=== PATIENT | female | born 1955 | race Caucasian/White ===

== ENCOUNTER 2019-11-07 17:18 | Emergency (ER) | payer MEDICARE, MEDICAID, SELFPAY ==
--- NOTE | 2019-11-07 17:39 | DI.RAD.S_ITS ---
PROCEDURE: XR WRIST LT MIN 3V INDICATIONS: left wrist swelling and pain TECHNIQUE: 4 views of the wrist were acquired. COMPARISON: None. FINDINGS: Bones: No acute fractures or dislocations. No suspicious bony lesions. Chronic appearing ulnar fracture. Mild periarticular osteophyte formation at the radiocarpal, scaphotrapezial, and 1st metacarpal joints. Scaphoid view: Negative Soft tissues: Calcification within the soft tissues at the medial ulnocarpal interfaces. IMPRESSION: Osteoarthritis. No acute fracture. No osseous lesion. If symptoms and/or clinical suspicion for pathology persist, further assessment with repeat, or advanced imaging (e.g., CT, MRI, or bone scan) may be helpful for further assessment. Dictated by: Spencer Huddleston M.D. on 11/07/2019 at 17:59 Approved by: Spencer Huddleston M.D. on 11/07/2019 at 18:01
[2019-11-07 17:40] VITALS: BP 183/79; PULSE 108; RESP 18; TEMP 37; O2SAT 96; BMI 17.8
--- NOTE | 2019-11-07 17:43 | ED.SKABFB ---
HPI - Skin/Abscess/Foreign Bdy <EMILIE SahaBC - Last Filed: 11/07/19 19:17> General Chief complaint: Skin/Abscess/Foreign Body Stated complaint: left wrist swelling and pain, woke up like that Time Seen by Provider: 11/07/19 17:32 Source: patient and family Mode of arrival: Family Vehicle Limitations: no limitations History of Present Illness HPI narrative: The patient is a 64-year-old female current smoker with history of hypertension, emphysema who presents with a chief complaint of left wrist pain and swelling. She states she woke up like this with redness and pain on the lateral aspect of her left wrist. She took some ibuprofen better, but it did not help. She denies any fevers nausea vomiting or diarrhea. She states she can move her wrist, but it hurts to do so. She denies any history of gout. She saw her PCP, Dr. Forman who referred her to this department for further workup. She denies any falls or trauma. She states that she had a a right hip ORIF several months ago. 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 Related Data Home Medications Medication Instructions Recorded Confirmed albuterol sulfate 90 mcg INHALATION PRN PRN 11/07/19 11/07/19 amlodipine 5 mg PO DAILY 11/07/19 11/07/19 hydrochlorothiazide 25 mg PO DAILY 11/07/19 11/07/19 Previous Rx's Medication Instructions Recorded cephalexin 500 mg PO QID 10 Days #40 cap 11/07/19 doxycycline hyclate 100 mg PO BID #14 cap 11/07/19 hydrocodone-acetaminophen 1 tab PO Q4-6H PRN #5 tab 11/07/19 Allergies Allergy/AdvReac Type Severity Reaction Status Date / Time codeine Allergy Unknown Verified 11/07/19 17:42 Review of Systems <EMILIE SahaBC - Last Filed: 11/07/19 19:17> Review of Systems Narrative: GENERAL: Denies chills, fatigue, malaise, fever, sweats. HEENT: Denies sinus pain, ear pain, sore throat, difficulty swallowing, dizziness. RESPIRATORY: Denies dyspnea, cough, wheezing, hemoptysis, sputum. CARDIOVASCULAR: Denies chest pain, palpitations, orthopnea, edema, GASTROINTESTINAL: Denies nausea, vomiting, abdominal pain, diarrhea, constipation, melena. : Denies dysuria, frequency, incontinence, hematuria, urinary retention. MUSCULOSKELETAL: See HPI SKIN: See HPI NEUROLOGIC: Denies weakness, headache, numbness, change in speech, confusion, seizures, incoordination. PSYCHIATRIC: No concerning psychosocial issues. 12 point review of systems is negative except for those stated above Patient History <EMILIE Saha - Last Filed: 11/07/19 19:17> Social History Smoking Status: Current every day smoker Smoking Status: Current every day smoker tobacco type: cigarettes alcohol intake frequency: other Substance Use Type: does not use Exam <EMILIE Saha - Last Filed: 11/07/19 19:17> Narrative Exam Narrative: GENERAL: Elderly female in no acute distress HEAD: Atraumatic. Normocephalic. No temporal or scalp tenderness. EYES: Pupils equal round and reactive. Extraocular motions intact. No scleral icterus. No injection or drainage. ENT: Nose without bleeding, purulent drainage or septal hematoma. Throat without erythema, tonsillar hypertrophy or exudate. Uvula midline. Airway patent. NECK: Trachea midline. No JVD or lymphadenopathy. Supple, nontender, no meningeal signs. CARDIOVASCULAR: Regular rate and rhythm RESPIRATORY: Occasional cough. No increased respiratory effort. No accessory muscle use. EXTREMITIES: Skin exam as noted. Decreased range of motion noted left wrist all maurer. However able to flex and extend pronate supinate. Positive right radial pulse. Capillary refill less than 2 seconds all fingers left hand BACK: Nontender without deformity or crepitance. No flank tenderness. NEURO: AOx3. SKIN: 6 x 4 cm of erythema and warmth noted on lateral aspect of left wrist no palpable fluctuance or abscess. Initial Vital Signs Initial Vital Signs: Vital Signs Temperature 98.6 F 11/07/19 17:40 Pulse Rate 108 H 11/07/19 17:40 Respiratory Rate 18 11/07/19 17:40 Blood Pressure 183/79 H 11/07/19 17:40 Pulse Oximetry 96 11/07/19 17:40 <Maxx Ross MD - Last Filed: 11/08/19 07:20> Initial Vital Signs Initial Vital Signs: Vital Signs Temperature 98.6 F 11/07/19 17:40 Pulse Rate 108 H 11/07/19 17:40 Respiratory Rate 18 11/07/19 17:40 Blood Pressure 183/79 H 11/07/19 17:40 Pulse Oximetry 96 11/07/19 17:40 Scores <GINA Saha - Last Filed: 11/07/19 19:17> GCS [place] coma scale eye opening: Spontaneous Joey coma scale verbal response: Orientated Joey coma scale motor response: Obey commands [place] coma scale total score: 15 Course <GINA Saha - Last Filed: 11/07/19 19:17> Orders Ordered: Discontinued Medications Hydrocodone Bitart/Acetaminophen ([place] 5/325) 1 tab PO NOW ONE Stop: 11/07/19 17:42 Last Admin: 11/07/19 18:16 Dose: 1 tab Documented by: SANDRA Cephalexin HCl (Keflex) 500 mg PO NOW ONE Stop: 11/07/19 19:05 Last Admin: 11/07/19 19:15 Dose: 500 mg Documented by: SANDRA Doxycycline Hyclate (Vibramycin) 100 mg PO NOW ONE Stop: 11/07/19 19:05 Last Admin: 11/07/19 19:15 Dose: 100 mg Documented by: SANDRA Vital Signs Vital signs: Vital Signs - 8 hr 11/07/19 17:40 11/07/19 18:18 Temperature 98.6 F Pulse Rate 108 H 87 Respiratory Rate 18 18 Blood Pressure 183/79 H Blood Pressure [Right Arm] 130/61 Pulse Oximetry 96 96 <Maxx Ross MD - Last Filed: 11/08/19 07:20> Orders Ordered: Discontinued Medications Hydrocodone Bitart/Acetaminophen ([place] 5/325) 1 tab PO NOW ONE Stop: 11/07/19 17:42 Last Admin: 11/07/19 18:16 Dose: 1 tab Documented by: JABARIE Cephalexin HCl (Keflex) 500 mg PO NOW ONE Stop: 11/07/19 19:05 Last Admin: 11/07/19 19:15 Dose: 500 mg Documented by: SANDRA Doxycycline Hyclate (Vibramycin) 100 mg PO NOW ONE Stop: 11/07/19 19:05 Last Admin: 11/07/19 19:15 Dose: 100 mg Documented by: SANDRA Vital Signs Vital signs: Vital Signs - 8 hr 11/07/19 17:40 11/07/19 18:18 Temperature 98.6 F Pulse Rate 108 H 87 Respiratory Rate 18 18 Blood Pressure 183/79 H Blood Pressure [Right Arm] 130/61 Pulse Oximetry 96 96 MDM - Skin/Abscess/Foreign Bdy <Zaria Sweeneymer, [employer]-BC - Last Filed: 11/07/19 19:17> Lab Data Result diagrams: 11/07/19 18:24 11/07/19 18:24 Labs: Lab Results 11/07/19 11/07/19 11/07/19 Range/Units 18:24 18:24 18:24 WBC 8.4 (4.5-11.0) X10^3/uL RBC 4.09 (4.0-5.2) X10^6/uL Hgb 12.8 (12.0-16.0) g/dL Hct 37.7 (36-46) % MCV 92.3 (80-100) fL MCH 31.4 (26-34) PG MCHC 34.0 (30-36) % RDW 13.7 (11.6-14.8) % Plt Count 194 (150-400) X10^3/uL Neut % (Auto) 68.0 (50-75) % Lymph % (Auto) 20.3 L (25-40) % Falls % (Auto) 9.3 (3-14) % Eos % (Auto) 1.7 L (2-4) % Baso % (Auto) 0.7 (0-2) % Neut # (Auto) 5700 (6530-8528) /uL Lymph # (Auto) 1700 (7905-4030) /uL Falls # (Auto) 800 (0-900) /uL Eos # (Auto) 100 (0-450) /uL Baso # (Auto) 100 (0-100) /uL Sodium 139 (137-145) mmol/L Potassium 3.5 (3.4-5.1) mmol/L Chloride 101 (98-107) mmol/L Carbon Dioxide 31 (22-32) mmol/L BUN 17 (7-17) mg/dL Creatinine 0.59 (0.52-1.04) mg/dL Estimated GFR > 60.0 (>60) mL/min BUN/Creatinine Ratio 28.8 H (6-22) Glucose 122 H (80-110) mg/dL Uric Acid 4.6 (2.5-6.2) mg/dL Calcium 9.8 (8.4-10.2) mg/dL Total Bilirubin 0.5 (0.2-1.3) mg/dL AST 20 (14-36) IU/L ALT 15 (<35) IU/L Alkaline Phosphatase 65 (38-126) U/L Total Protein 7.7 (6.3-8.2) g/dL Albumin 4.4 (3.5-5.0) g/dL Globulin 3.3 (1.7-4.1) g/dL Albumin/Globulin Ratio 1.3 (1.0-2.8) Procalcitonin < 0.05 (<0.5) ng/mL Imaging Data Extremity x-ray #1: Radiologist's Impression: [address] [place] [id number] XRay Report Signed Patient: Neha Montalvo R#: [id number] : 5Acct:[id number] Age/Sex: 64 / FDate of Service: 11/07/19 Loc: ED Accession Number: [id number] Procedure: XR wrist LT min 3V Ordering Provider: Zaria Herrera [employer]- PROCEDURE: XR WRIST LT MIN 3V INDICATIONS: left wrist swelling and pain TECHNIQUE: 4 views of the wrist were acquired. COMPARISON: None. FINDINGS: Bones: No acute fractures or dislocations. No suspicious bony lesions. Chronic appearing ulnar fracture. Mild periarticular osteophyte formation at the radiocarpal, scaphotrapezial, and 1st metacarpal joints. Scaphoid view: Negative Soft tissues: Calcification within the soft tissues at the medial ulnocarpal interfaces. IMPRESSION: Osteoarthritis. No acute fracture. No osseous lesion. If symptoms and/or clinical suspicion for pathology persist, further assessment with repeat, or advanced imaging (e.g., CT, MRI, or bone scan) may be helpful for further assessment. Dictated by: Spencer Huddleston M.D. on 11/07/2019 at 17:59 Approved by: Spencer Huddleston M.D. on 11/07/2019 at 18:01 [facility] Narrative Medical decision making narrative: The patient is a 64-year-old female who who presents with a chief complaint of sudden left wrist pain and swelling. She denies any falls or trauma. She saw her primary care provider who sent her to the emergency department. Labs are reassuring, no elevated procalcitonin, no leukocytosis. This combined with noted range of motion helps rule out septic joint. Uric acid within normal limits as well as location helps rule out initial gout outbreak. At this point I will treat her for cellulitis. Patient does have a remote history of MRSA, so will cover for MRSA with doxycycline. Also placed on Keflex. Small prescription [place] given. Discussed at length the importance of following up with primary care provider as well as monitoring for signs of systemic infection such as fever, no hip down fluids etcetera. Discussed follow-up with worsening or no improvement. Discussed come back to ER for acute concerns. Patient has no questions or concerns upon discharge and states understanding of return precautions as well as follow-up care. She was discharged home with her daughter. <Maxx Ross MD - Last Filed: 11/08/19 07:20> Lab Data Labs: Lab Results 11/07/19 11/07/19 11/07/19 Range/Units 18:24 18:24 18:24 WBC 8.4 (4.5-11.0) X10^3/uL RBC 4.09 (4.0-5.2) X10^6/uL Hgb 12.8 (12.0-16.0) g/dL Hct 37.7 (36-46) % MCV 92.3 (80-100) fL MCH 31.4 (26-34) PG MCHC 34.0 (30-36) % RDW 13.7 (11.6-14.8) % Plt Count 194 (150-400) X10^3/uL Neut % (Auto) 68.0 (50-75) % Lymph % (Auto) 20.3 L (25-40) % Falls % (Auto) 9.3 (3-14) % Eos % (Auto) 1.7 L (2-4) % Baso % (Auto) 0.7 (0-2) % Neut # (Auto) 5700 (5172-7333) /uL Lymph # (Auto) 1700 (6955-5659) /uL Falls # (Auto) 800 (0-900) /uL Eos # (Auto) 100 (0-450) /uL Baso # (Auto) 100 (0-100) /uL Sodium 139 (137-145) mmol/L Potassium 3.5 (3.4-5.1) mmol/L Chloride 101 (98-107) mmol/L Carbon Dioxide 31 (22-32) mmol/L BUN 17 (7-17) mg/dL Creatinine 0.59 (0.52-1.04) mg/dL Estimated GFR > 60.0 (>60) mL/min BUN/Creatinine Ratio 28.8 H (6-22) Glucose 122 H (80-110) mg/dL Uric Acid 4.6 (2.5-6.2) mg/dL Calcium 9.8 (8.4-10.2) mg/dL Total Bilirubin 0.5 (0.2-1.3) mg/dL AST 20 (14-36) IU/L ALT 15 (<35) IU/L Alkaline Phosphatase 65 (38-126) U/L Total Protein 7.7 (6.3-8.2) g/dL Albumin 4.4 (3.5-5.0) g/dL Globulin 3.3 (1.7-4.1) g/dL Albumin/Globulin Ratio 1.3 (1.0-2.8) Procalcitonin < 0.05 (<0.5) ng/mL Discharge Plan Departure Patient Disposition: Home Clinical Impression: Cellulitis Qualifiers: Site of cellulitis: extremity Site of cellulitis of extremity: upper extremity Laterality: left Qualified Code(s): L03.114 - Cellulitis of left upper limb Discharge Date/Time: 11/07/19 19:33 Instructions: DI for Cellulitis -- Adult Activity Restrictions/Additional Instructions: Thank you for trusting us with your care today As I discussed, your lab work was very reassuring with normal uric acid and no elevated white blood cell count We have elected to treat you for a skin infection called cellulitis. I sent prescriptions of 2 different antibiotics to [facility]. I also sent a small prescription of pain medicine Please follow-up with primary care provider in the next few days. Please come back to the emergency department for any acute concerns such as those I discussed including fever, inability keep down fluids or any acute concerns Prescriptions: New cephalexin 500 mg capsule 500 mg PO QID 10 Days Qty: 40 RF: 0 doxycycline hyclate 100 mg capsule 100 mg PO BID Qty: 14 RF: 0 hydrocodone-acetaminophen 5-325 mg tablet 1 tab PO Q4-6H PRN (Reason: pain) Qty: 5 RF: 0 No Action albuterol sulfate 90 mcg/actuation HFA aerosol inhaler 90 mcg INHALATION PRN PRN (Reason: Bronchospasm) RF: 0 amlodipine 5 mg tablet 5 mg PO DAILY RF: 0 hydrochlorothiazide 25 mg tablet 25 mg PO DAILY RF: 0 Referrals: Miguel Forman [Non-Staff] -
--- NOTE | 2019-11-07 17:47 | PC.NURSE ---
good radial pulses in left wrist.
[2019-11-07] MEDS: HYDROCODONE/ACET 5/325 TABLET 1 TAB PO (18:16)
[2019-11-07 18:18] VITALS: BP 130/61; PULSE 87; RESP 18; O2SAT 96
[2019-11-07 18:36] LABS: Add Manual Diff / Slide Review NO; Basophils Absolute Auto 100 /uL (0-100); Basophils Percent Auto 0.7 % (0-2); Eosinophils Absolute Auto 100 /uL (0-450); Eosinophils Percent Auto 1.7 % (2-4); Hematocrit 37.7 % (36-46); Hemoglobin 12.8 g/dL (12.0-16.0); Lymphocytes Absolute Auto 1700 /uL (1100-4500); Lymphocytes Percent Auto 20.3 % (25-40); Mean Corpuscular Hemoglobin 31.4 PG (26-34); Mean Corpuscular Volume 92.3 fL (80-100); Monocytes Absolute Auto 800 /uL (0-900); Monocytes Percent Auto 9.3 % (3-14); Neutrophils Absolute Auto 5700 /uL (1500-7000); Red Blood Cell Count 4.09 X10^6/uL (4.0-5.2); Red Cell Distribution Width 13.7 % (11.6-14.8); White Blood Cell Count 8.4 X10^3/uL (4.5-11.0)
[2019-11-07 18:44] LABS: Alanine Aminotransferase 15 IU/L (<35); Albumin 4.4 g/dL (3.5-5.0); Albumin Globulin Ratio 1.3 (1.0-2.8); Alkaline Phosphatase 65 U/L (38-126); Aspartate Aminotransferase 20 IU/L (14-36); BUN Creatinine Ratio 28.8 (6-22); Bilirubin Total 0.5 mg/dL (0.2-1.3); Blood Urea Nitrogen 17 mg/dL (7-17); Calcium 9.8 mg/dL (8.4-10.2); Carbon Dioxide 31 mmol/L (22-32); Chloride 101 mmol/L (98-107); Estimated Glomerular Filt Rate > 60.0 mL/min (>60); Globulin 3.3 g/dL (1.7-4.1); Glucose 122 mg/dL (80-110); HEMOLYSIS < 15 (0-50); Potassium 3.5 mmol/L (3.4-5.1); Sodium 139 mmol/L (137-145); Total Protein 7.7 g/dL (6.3-8.2); Uric Acid 4.6 mg/dL (2.5-6.2)
[2019-11-07 18:53] LABS: Platelet Count 194 X10^3/uL (150-400)
[2019-11-07 19:04] LABS: Procalcitonin < 0.05 ng/mL (<0.5)
[2019-11-07] MEDS: DOXYCYCLINE HYCLATE 100 MG TABLET PO (19:15)
[2019-11-07] MEDS: cephALEXin 250 MG CAPSULE 500 MG PO (19:15)
[2019-11-07 19:21] VITALS: BP 132/64; PULSE 82; RESP 17; O2SAT 98
[2019-11-07 19:31] VITALS: BP 132/64; PULSE 84; RESP 16; O2SAT 96
== END 2019-11-07 19:33 | disposition home or self-care (01) ==
PROVIDERS: Emergency Provider Nurse Practitioner Family
DX: L03.114 Cellulitis of left upper limb (principal)
CPT/HCPCS: 36415; 73110; 80053; 84145; 84550; 85025; 99283; 99284

== ENCOUNTER → 2019-12-30 14:08 | Outpatient (CLI) | payer MEDICARE, MEDICAID, SELFPAY ==
--- NOTE | 2019-12-30 | DI.CT.S_ITS ---
PROCEDURE: CT LE RT WO CON INDICATIONS: RIGHT HIP FRACTURE TECHNIQUE: Noncontrast 3 mm axial sections acquired through the bony pelvis. Additional 3 mm axial sections acquired through the symptomatic hip joint, with coronal and sagittal reformats. COMPARISON: , CR, XR PELVIS WITH LATERAL HIP RIGHT, 12/03/2019, 16:00. FINDINGS: Image quality: Excellent. Bones: Diffuse osteopenia. Postsurgical changes related to intramedullary vaughn and screw fixation of the proximal right femur. There is unchanged alignment. The hardware appears intact. No evidence of hardware loosening. Persistent fracture lucency is noted with sclerotic appearance to the margins, coronal image 50/6. Mild bilateral hip osteoarthritis. Lower lumbar spondylosis. Alignment at the sacroiliac joints and pubis symphysis within normal limits. Colonic diverticulosis is seen without evidence of acute complication. Scattered vascular calcifications seen throughout the aorta. Large amount of stool is noted. Otherwise, intrapelvic contents without acute abnormality. IMPRESSION: Status post vaughn and screw fixation of the proximal right femur in unchanged alignment. Hardware appears intact. Chronic degenerative and incidental findings as above Dictated by: Heath Suresh M.D. on 12/30/2019 at 16:12 Approved by: Heath Suresh M.D. on 12/30/2019 at 16:18
== END ==
PROVIDERS: PCP Family Medicine; Referring Provider Orthopaedic Surgery; Visit Provider Orthopaedic Surgery
DX: S72.091A Other fracture of head and neck of right femur, initial encounter for closed fracture (principal); M16.0 Bilateral primary osteoarthritis of hip; M85.88 Other specified disorders of bone density and structure, other site; M47.816 Spondylosis without myelopathy or radiculopathy, lumbar region; I70.0 Atherosclerosis of aorta; K57.90 Diverticulosis of intestine, part unspecified, without perforation or abscess without bleeding; X58.XXXA Exposure to other specified factors, initial encounter
CPT/HCPCS: 73700

== ENCOUNTER → 2023-08-10 12:13 | Outpatient (CLI) | payer MEDICARE, MEDICAID, SELFPAY ==
--- NOTE | 2023-08-10 12:17 | DI.US.S_ITS ---
LIMITED ULTRASOUND OF RIGHT BREAST AND AXILLA: 08/10/2023 CLINICAL: Patient returns today to evaluate a focal asymmetry in the right breast. Comparison is made to exams dated: 08/10/2023 mammogram - [facility], 02/08/2023 mammogram - Outside facility, and 07/28/2011 mammogram - [facility]. Color flow and real-time ultrasound of the right breast 11 o'clock, and axilla regions were performed on the areas of interest. Quezada scale images of the real-time examination were reviewed. There is a 0.6 cm x 0.6 cm x 1 cm mass in the right axillary tail. This mass is hypoechoic with posterior acoustic shadowing. This correlates with mammography findings. The right axilla was interogated and normal appearing lymph nodes are visualized. IMPRESSION: SUSPICIOUS OF MALIGNANCY No right axillary adenopathy. The 0.6 cm x 0.6 cm x 1 cm mass is at a moderate suspicion for malignancy. An ultrasound guided biopsy is recommended. This exam was interpreted at Station ID: [id number]. SUMMARY: This was discussed with the patient by the radiologist at the time of the exam. Electronically Signed By: Cecilia devlin/:08/10/2023 14:16:51 letter sent: Biopsy Required Ultrasound BI-RADS: 4b Moderate suspicion of malignancy
--- NOTE | 2023-08-10 12:17 | DI.MG.S_ITS ---
UNILATERAL RIGHT DIGITAL DIAGNOSTIC MAMMOGRAM 3D/2D WITH ADDITIONAL VIEWS: 08/10/2023 CLINICAL: Additional evaluation requested from prior study. Comparison is made to exams dated: 07/28/2011 mammogram - [facility] and 02/08/2023 mammogram - Outside facility. The right breast is heterogeneously dense, which may obscure small masses (category c / 51-75% glandular tissue). There is a focal asymmetry in the right breast at 11 o'clock posterior depth. This is seen in additional views. No other significant masses or calcifications are seen in the breast. IMPRESSION: INCOMPLETE: NEEDS ADDITIONAL IMAGING EVALUATION The focal asymmetry in the right breast is indeterminate. A targeted ultrasound of the right breast is recommended and will be performed immediately following this exam. Based on the Tyrer Cuzick model (a risk assessment model) the patient's lifetime risk is 6.3% and her 10 year risk is 3.5%. According to the ACR, ACS, and NCCN guidelines, an annual breast MRI exam along with mammogram is recommended if the patient's lifetime risk is 20% or greater. This exam was interpreted at Station ID: [id number]. NOTE: For mammograms, a report in lay terms will be sent to the patient. Approximately 15% of breast malignancies will not be visualized mammographically. In the management of a palpable breast mass, a negative mammogram must not discourage biopsy of a clinically suspicious lesion. Electronically Signed By: Cecilia Dunn M.D. lk/:08/10/2023 14:12:45 ACR BI-RADS Category 0: Incomplete [id number]
== END ==
PROVIDERS: PCP Family Medicine; Referring Provider Family Medicine; Visit Provider Family Medicine
DX: R92.8 Other abnormal and inconclusive findings on diagnostic imaging of breast (principal); N64.89 Other specified disorders of breast; N63.31 Unspecified lump in axillary tail of the right breast
CPT/HCPCS: 76642; 77065; G0279

== ENCOUNTER → 2023-08-10 12:21 | Outpatient (CLI) | payer MEDICARE, MEDICAID, OTHER, SELFPAY | PROVIDERS: PCP Family Medicine; Referring Provider Family Medicine; Visit Provider Family Medicine | DX: J44.9 Chronic obstructive pulmonary disease, unspecified (principal); F17.210 Nicotine dependence, cigarettes, uncomplicated; R92.8 Other abnormal and inconclusive findings on diagnostic imaging of breast; N64.89 Other specified disorders of breast; N63.31 Unspecified lump in axillary tail of the right breast | CPT/HCPCS: 76642; 77065; 94060; 94726; 94729; G0279 ==

== ENCOUNTER → 2023-08-28 | Outpatient (CLI) | payer MEDICARE, MEDICAID, SELFPAY ==
--- NOTE | 2023-08-28 | DI.MG.S_ITS ---
UNILATERAL RIGHT DIGITAL DIAGNOSTIC MAMMOGRAM 3D/2D POST-PROCEDURE IMAGING FOR MARKER PLACEMENT: 08/28/2023 CLINICAL: Post Clip. Comparison is made to exams dated: 08/10/2023 ultrasound, 08/10/2023 mammogram - [facility], and 02/08/2023 mammogram - Outside facility. The right breast is heterogeneously dense, which may obscure small masses (category c / 51-75% glandular tissue). There is a marker clip in the appropriate position in the right breast at 9 o'clock posterior depth. This marker clip placement is at the biopsy site. IMPRESSION: POST PROCEDURE MAMMOGRAM FOR MARKER PLACEMENT There was a successful marker clip placement in the right breast posterior depth. Based on the Tyrer Cuzick model (a risk assessment model) the patient's lifetime risk is 6.3% and her 10 year risk is 3.5%. According to the ACR, ACS, and NCCN guidelines, an annual breast MRI exam along with mammogram is recommended if the patient's lifetime risk is 20% or greater. This exam was interpreted at Station ID: [id number]. NOTE: For mammograms, a report in lay terms will be sent to the patient. Approximately 15% of breast malignancies will not be visualized mammographically. In the management of a palpable breast mass, a negative mammogram must not discourage biopsy of a clinically suspicious lesion. Electronically Signed By: Jack Mendez M.D. crm/:08/30/2023 13:49:04 ACR BI-RADS Category Post-procedure mammogram for marker placement
--- NOTE | 2023-08-28 | PATH_ITS ---
[facility] Accession Number: [id number] No. of containers..01 Tissue . 01 Material submitted: . breast - RIGHT BREAST 11:00 9CMFN . 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 Ductal carcinoma in situ (DCIS), solid and cribriform variants, with mucinous features, intermediate nuclear grade 2, without necrosis. Negative for lymphovascular invasion. See comment. V 08/31/2023 1616 Local . 01 Comment: The microinvasive foci of invasive ductal carcinoma has low mitotic activity with a slight nuclear pleomorphism. In a background of significant ductal carcinoma in situ (DCIS), with solid and cribriform variants. . Immunohistochemical stains were performed with appropriate controls on part A1. . P63 and myosin immunostains are performed and highlight loss of myoepthelial cells in two small foci confirming the presence of invasive carcinoma. . Additionally, e-cadherin and beta-catenin immunostains are preserved on DCIS and invasive components. . Ki-67 shows low proliferation rate, less than 10%. . Predictive marker immunohistochemical studies are performed on block A1 with the invasive carcinoma showing the following results: . Estrogen receptor (SP1): Positive (100%, strong intensity). Progesterone receptor (1E2): Positive (90%, intermediate to strong intensity). Her2 (4B5): Negative (1+). . Internal controls for ER and NM are positive. Cold ischemic time is <5 minutes. The scoring criteria for breast biomarkers by immunohistochemistry is based on the ASCO/CAP guidelines (Trent AC et al, J Clin Oncol: 2018 Dec 04;36(20):9766-1065 and Roman ME et al, Arch Pathol Lab Med: 2009;134(6):907-22). Deparaffinized sections of formalin fixed tissue (along with appropriate positive controls) are incubated with the above antibody(s). Using the automated K[employer] stainer, tissue is incubated with the designated antibody which is then localized by a non-biotin, dual polymer detection system. The external controls are reviewed for appropriate reactivity and found to be adequate. Results on the target cell population are indicated above. These tests have not been validated on decalcified tissue. This test was developed and its performance characteristics determined by [employer]. It has not been cleared or approved by the U.S. Food and Drug Administration. The FDA has determined that such clearance or approval is not necessary. This test is used for clinical purposes. It should not be regarded as investigational or for research. . Dr. Altagracia Larkin reviewed the biopsy and agreed with the above findings. . The above findings were attempted to communicate to Dr. Vaughn Vasquez verbally over the phone, however, did not get a call back on 08/31/2023 at 3:50 p.m. . 01 Electronically signed: . Sophie Alvarez MD, Pathologist NPI- [id number] . 01 Gross description: . Received in formalin with two identifiers and no additional designation, are multiple yellow to johansen soft tissue fragments admixed with hemorrhagic material aggregating to 2.4 x 1.9 x 0.2 cm. Inked black, filtered, and submitted entirely in cassette A1. ([id number]) /SANDRA 08/29/2023 0828 Local . 01 Pathologist provided ICD-10: N63.10 . 01 CPT . 286327, [id number], [id number], [id number], 634229, 777119 Performed at: 01 [facility] [address] [place] [address] [address], [place], [place] [id number] MD Jered Sarah MD Phone: [phone]
--- NOTE | 2023-08-28 13:34 | DI.US.S_ITS ---
ULTRASOUND GUIDED BIOPSY RIGHT BREAST USING VACUUM DEVICE WITH MARKING DEVICE INSERTED: 09/05/2023 CLINICAL: Right breast bx. PATIENT CONSENT: Risks (minor bleeding, infection, vasovagal reaction and repeat procedure), benefits and alternatives were explained to the patient and written informed consent was obtained. Correlation is made to exams dated: 08/28/2023 mammogram, 08/10/2023 ultrasound, 08/10/2023 mammogram - [facility], and 02/08/2023 mammogram - Outside facility. An ultrasound guided biopsy using real-time ultrasound was performed for the 0.6 cm x 0.6 cm x 1 cm mass located in the right axillary tail. The skin was prepped in the usual manner. A biopsy needle was placed adjacent to the abnormality under ultrasound guidance. Once the needle was documented to be in the correct location, a specimen was obtained using the Mammotome biopsy system. A clip was inserted into the biopsy cavity. The specimen was sent to the laboratory for pathological analysis. IMPRESSION: ULTRASOUND GUIDED BIOPSY MALIGNANT Ultrasound guided biopsy of the 0.6 cm x 0.6 cm x 1 cm mass in the right axillary tail was successful. Pathology indicates malignant ductal carcinoma in situ (DCIS). Pathology results are concordant with imaging findings. A surgical/oncologic consultation is recommended. This exam was interpreted at Station ID: [id number]. Jack Taylor M.D. [facility],aty/:09/05/2023 11:33:22
== END ==
PROVIDERS: PCP Family Medicine; Referring Provider Family Medicine; Visit Provider Family Medicine
DX: D05.11 Intraductal carcinoma in situ of right breast (principal)
CPT/HCPCS: 19083; 77065

== ENCOUNTER 2023-09-19 09:08 | Day surgery (SDC) | payer MEDICARE, MEDICAID, SELFPAY ==
[2023-09-10 12:22] VITALS: BMI 15.3
[2023-09-19] VITALS (10 sets, daily range): BP systolic 114–143; BP diastolic 54–68; PULSE 76–95; RESP 13–18; TEMP 36.8–37.1; O2SAT 91–96; BMI 15.5
--- NOTE | 2023-09-19 | PATH_ITS ---
[facility] Accession Number: [id number] No. of containers..01 Tissue . 01 Material submitted: . breast - RIGHT BREAST . 01 Clinical history: . LONG STITCH LATERAL AND SHORT STITCH SUPERIOR . 01 Diagnosis: A. 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 Tumor size (invasive component): Multiple foci of invasive carcinoma, in association with solid papillary carcinoma-in situ pattern, the largest of which measures 4.5 mm; see comment. 2. Nuclear pleomorphism: Intermediate. (2/3) 3. Mitotic rate: Low. (1/3) 4. Tubular formation: Little or none. (3/3) 5. Conventional ductal carcinoma in situ: Not definitively identified; see comment. 6. Calcifications: Present, in association with solid papillary carcinoma-in situ pattern, and benign breast tissue. 7. Lymphatic space invasion: Not identified. 8. Resection margins: - Invasive carcinoma: Negative, more than 2 mm. - Solid papillary carcinoma-in situ pattern: * Anterior-superior, 9-10 O'clock, block A3 (lesion #1): At ink/cauterized margin (i.e. transected) over a linear span of 1.0 mm, and less than 2 mm over linear span of 7mm. * Junction between anterior-superior and deep margins, 12 O'clock, block A9 and A10 (lesion #2): less than 2 mm over linear span of 1 mm. * Deep margin, 12 O'clock, Block A9 (lesion #2): less than 2 mm over linear span of 5.5 mm. 9. Prognostic markers: Repeated on block A5 (largest tumor focus), with the following features: - Estrogen receptor: Positive (more than 99%, Strong). - Progesterone receptor: Positive (more than 95%, Strong). - HER2: Negative for protein overexpression by IHC (0). 10. Lymph node status: No lymph nodes identified within the specimen or submitted. 11. Additional findings: - Skin and nipple uninvolved. - Skeletal muscle not present for evaluation. - Biopsy clip and biopsy site changes present. - Background breast with fibrocystic change, including columnar cell change/columnar cell hyperplasia, and usual ductal hyperplasia. 12. Pathologic stage: pT1a pNX. 13. Best tumor block for additional studies: Block A5. . 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 . Lesion #1: associated with biopsy site/clip, is seen at the 9 to 10 o'clock quadrant (slices 3 and 4, blocks A3-A5) and consists predominantly of SPC-IS, spanning approximately 1.6 cm. Within blocks A4 and A5, in close association with SPC-IS, approximately 5 separate foci of conventional invasive carcinoma are seen ranging in size from 1 mm (microscopic) to 4.5 mm. . The areas designated as SPC-IS refer to areas that consist of round nodules of neoplastic proliferation with a well-circumscribed edge (resembling DCIS), but which demonstrates streaming/spindling of cells with uniform nuclear cytology (moderate grade), intracellular and extracellular mucin production, underlying papillary structure, retention of myoepithelial markers (see microscopic description), and diffuse positivity for synaptophysin and chromogranin. [facility] 09/26/2023 1814 Local . 01 Electronically signed: . She Esteves MD, Pathologist NPI- [id number] . 01 Gross description: . Received: In formalin, labeled with two patient identifiers and right breast long stitch lateral, short stitch superior. Specimen: Right simple mastectomy. Weight: 174 grams. Measurements: 15.5 cm medial to lateral, 10.5 cm superior to inferior, 3.6 cm anterior to posterior. Skin ellipse: Present, johansen-white, wrinkled, elliptical measuring 6.5 x 3.1 x 0.2 cm. Nipple/areola: 1.5 x 1.2 x 0.3 cm, everted nipple with a 3.0 x 2.8 x 0.1 cm in diameter areola. Margins: The skin ellipse is oriented by the surgeon with a short suture as superior, and a long suture as lateral. The posterior surface is surfaced by a smooth glistening fascial plane which is inked black. The anterior soft tissue margins are unremarkable, adjacent to the skin, and are inked blue for anterior-superior, and green for anterior-inferior. Slices: Serial or coronal sections of the specimen are consecutively numbered from 1-16 from lateral to medial. Lesions: There are two lesions, one located in slices 3 and 4 (9 and 10 o'clock), and a second lesion 7.5 cm away, located in slices 10 and 11 (at 12 o'clock). Lesion 1: Description: White, firm, well-circumscribed, with punctate area of fat necrosis, with associated biopsy clip Size: 1.0 x 1.0 x 0.9 cm. Slices involved: Slices 3 and 4 from lateral aspect to involve the upper outer quadrant, 9 and 10 o'clock position. Distance to margins: 0.1 cm from the superior-anterior margin, 1.0 cm from the lateral margin, 2.2 cm from the inferior margin, 0.3 cm from the deep margin, medial margin is widely clear, and 8.5 cm from the nipple. Lesion #2: Description: White, well-circumscribed, firm nodule. Size: 1.1 x 0.5 x 0.5 cm. Distance to margins: 0.1 cm from the deep margin, 0.4 cm from the superior-anterior margin, 9.5 cm from the lateral margin, 6.2 cm from the medial margin, 4.8 cm from the nipple, inferior margin widely clear. Other: The uninvolved breast parenchyma has a fat to fibrous ratio of approximately 80% adipose tissue 20% fibrous tissue. No additional lesions are identified. Biopsy clip is present in block A4. Pomologist sections are submitted: A1-A2: Nipple. A3: Slice 2, administrative representative, no tumor, lateral to lesion 1. A4-A5: Mass lesion 1, slices 3 and 4, respectively, to include deep, anterior margin. A6: Slice 6, administrative representative, no tumor, medial to lesion 1. A7: Slice 4, superior margin closest to mass 1. A8: Slice 9, administrative representative, no tumor, medial to lesion 2 at 12 o'clock. A9-A10: Slices 10 and 11 to include lesion 2 at 12 o'clock. A9 and A10 also include superior, anterior, and deep margins. A11: Section medial to lesion 2 without tumor grossly. A12: Lesion between 1 and 2 (7.5 cm apart). A13: Pomologist of lower outer quadrant. A14: Pomologist of upper inner quadrant. A15: Representativfe of lower inner quadrant. ([id number]) /MRV 09/26/2023 1802 Local . 01 Microscopic: . A panel of immunohistochemical stains is performed on multiple blocks in order to evaluate the neoplastic proliferation and are summarized as follows: . Block A3: P63 and smooth muscle myosin: Completely retained around solid papillary carcinoma - in situ pattern (SPC-IS) . Block A4: P63 and smooth muscle myosin: Lost around foci of conventional invasive ductal carcinoma, and retained around solid papillary carcinoma - in situ pattern. . Block A5: P63 and smooth muscle myosin: Lost around foci of conventional invasive ductal carcinoma, and retained around solid papillary carcinoma - in situ pattern. Synaptophysin and chromogranin: Positive within conventional invasive ductal carcinoma and solid papillary carcinoma-in situ pattern. . Predictive marker immunohistochemical studies are performed on block A5 with the largest focus of conventional invasive ductal carcinoma demonstrating the following results: . Estrogen receptor (SP1): Positive (more than 99% tumor cells staining, staining intensity strong). Progesterone receptor (1E2): Positive (more than 95% tumor cells staining, staining intensity strong). Her2 (4B5): Negative for protein overexpression by immunohistochemistry (0). . . Internal controls for ER and NM are positive. Internal controls for ER and NM are negative; false negative results cannot be excluded. Internal controls for ER and NM are not present; false negative results cannot be excluded. Cold ischemic time is <5 minutes. The scoring criteria for breast biomarkers by immunohistochemistry is based on the ASCO/CAP guidelines (Trent AC et al, J Clin Oncol: 2017Dec 04;36(20):2534-2052 and Jessie ME et al, Arch Pathol Lab Med: 2009;134(6):907-22). Deparaffinized sections of formalin fixed tissue (along with appropriate positive controls) are incubated with the above antibody(s). Using the automated Vantage stainer, tissue is incubated with the designated antibody which is then localized by a non-biotin, dual polymer detection system. The external controls are reviewed for appropriate reactivity and found to be adequate. Results on the target cell population are indicated above. These tests have not been validated on decalcified tissue. This test was developed and its performance characteristics determined by [employer]. It has not been cleared or approved by the U.S. Food and Drug Administration. The FDA has determined that such clearance or approval is not necessary. This test is used for clinical purposes. It should not be regarded as investigational or for research. . 01 Pathologist provided ICD-10: C50.911 . 01 CPT . 05205, V59435, F29652, 121014, 499613, 414157 Specimen Comment: A courtesy copy of this report has been sent to [phone] Performed at: 01 [facility] [address] [place] [address] [id number] MD Jered Sarah MD Phone: [phone]
[2023-09-19] MEDS: LACTATED RINGERS 1,000 ML 42 ML IV (09:33)
[2023-09-19] MEDS: ACETAMINOPHEN 325 MG TABLET 650 MG PO (10:16)
--- NOTE | 2023-09-19 10:38 | PM.PREOP ---
Pre-operative Note Interval Note History & Physical reviewed/Exam performed by Physician: Yes Changes to H&P: No
[2023-09-19] MEDS: CEFAZOLIN 2 GM/100 ML PREMIX 100 ML IV (11:14)
--- NOTE | 2023-09-19 11:26 | SUR.OPER ---
Supine on padded OR bed, head on pillow, left arm padded and tucked at side right arm on padded armboard @ < 90degrees, legs uncrossed, safety belt at thigh, tape over blanket over lower legs .
--- NOTE | 2023-09-19 12:14 | PM.OP.1 ---
Operative Date/Time/Diagnoses Date of procedure: 09/19/23 Time of procedure: 16:31 Pre-op diagnosis: Right breast cancer Post-op diagnosis: same Procedure & Clinicians Procedure: Right simple mastectomy Same procedure as scheduled: Yes Indications: Neha is a 68-year-old woman with a 1 cm hormone positive HER2 negative tumor clinically node negative. Following discussion she elects to proceed with a mastectomy. Surgeon: Ulises Simon Environmental Health Officer: Bienvenido Palmer Operative Notes Findings: Small firm mass in upper outer quadrant of breast Specimen(s): other (Right breast. Short stitch superior long stitch lateral) Estimated Blood Loss (mL): 20 Procedure in detail: Patient was brought to the operating room placed supine on the table. Bilateral lower extremity compression devices were applied. She received 2 g of Ancef prior to skin incision. She was intubated with an endotracheal tube. She was then prepped and draped in sterile fashion. Time-out was performed. An elliptical incision around the nipple areola complex was made with the knife. The subcutaneous tissue was divided with electrocautery. Skin flaps were raised to separate the breast tissue from the skin along the subdermal plexus. The dissection was extended superior to the clavicle, medial to the sternum, inferior the the inframamary fold and lateral to the anterior border of the latisimus dorsi. Next the breast tissue was from the underlying pectoralis fascia. The breast was passed off the field marked short stitch superior long stitch lateral. The wound was copiously irrigated and homeostasis was ensured. The mastectomy was closed with 3 0 Vicryl for the subcutaneous tissue and the skin was closed with 4 0 Monocryl followed by the application of Dermabond. Patient tolerated procedure well she emerged from anesthesia was extubated and transferred to recovery room in stable condition. Complications: none Post-operative Condition: stable Disposition: same day surgery
[2023-09-19] MEDS: ALBUTEROL 2.5 MG/3 ML NEB (ADULT) INH (12:48)
== END 2023-09-19 13:11 | disposition home or self-care (01) ==
PROVIDERS: PCP Family Medicine; Referring Provider Surgery; Visit Provider Surgery
PROC: 0HTT0ZZ Resection of Right Breast, Open Approach (ICD-10-PCS; CPT 19303; principal; 2023-09-19 11:00)
DX: C50.411 Malignant neoplasm of upper-outer quadrant of right female breast (principal); Z17.0 Estrogen receptor positive status [ER+]; J44.9 Chronic obstructive pulmonary disease, unspecified; F17.210 Nicotine dependence, cigarettes, uncomplicated
CPT/HCPCS: 19303; 82962; J0690; J1100; J2405; J2704; J3010; J7613

== ENCOUNTER → 2024-10-14 10:49 | Outpatient (CLI) | payer MEDICARE, MEDICAID, SELFPAY ==
--- NOTE | 2024-10-14 10:50 | DI.MG.S_ITS ---
MM screening mammo unilat LT: 10/14/2024. BI-RADS: 2 CLINICAL: 69-year old female for left screening mammogram. No Tyrer-Cuzick risk score calculation due to the patient's personal history of breast cancer. Patient reports a history of right breast carcinoma diagnosed at age 68. Status-post right mastectomy with radiation therapy and hormonal therapy. No first-degree family history of breast cancer. Patient was diagnosed within the last 5 years. The patient had a prior right breast biopsy. PRIOR EXAMS 09/05/2023, 08/28/2023, 08/10/2023. MAMMOGRAPHY TECHNIQUE: 2D and 3D (tomosynthesis) digital mammographic views obtained, with additional images as needed for full coverage. Current study was also evaluated with a Computer Aided Detection (CAD) system. DENSITY Left: C. The breasts are heterogeneously dense, which may obscure small masses. MAMMOGRAPHY FINDINGS Left: Benign-appearing calcifications noted on the left. There are no suspicious masses, calcifications, or other findings in the breast. IMPRESSION: Left * No evidence of malignancy with benign findings. RECOMMENDATIONS Left * Annual screening mammography. OVERALL ASSESSMENT CATEGORY BI-RADS-2: Benign. The [employer] recommends annual screening mammography beginning at age 40 for women with average risk of breast cancer. ELECTRONICALLY SIGNED: Wilfredo Taylro M.D. on 10/15/2024 at 07:59:43 AM PT Interpreting Station ID: [id number]
== END ==
PROVIDERS: PCP Family Medicine; Referring Provider Family Medicine; Visit Provider Family Medicine
DX: Z12.31 Encounter for screening mammogram for malignant neoplasm of breast (principal); Z85.3 Personal history of malignant neoplasm of breast; Z90.11 Acquired absence of right breast and nipple
CPT/HCPCS: 77063; 77067

== ENCOUNTER → 2024-10-14 11:41 | Outpatient (CLI) | payer MEDICARE, MEDICAID, SELFPAY ==
[2024-10-14 13:12] LABS: Add Manual Diff / Slide Review NO; Basophils Absolute Auto 0 /uL (0-100); Basophils Percent Auto 0.2 % (0-2); Eosinophils Absolute Auto 100 /uL (0-450); Eosinophils Percent Auto 1.3 % (2-4); Hematocrit 37.3 % (36-46); Hemoglobin 12.4 g/dL (12.0-16.0); Lymphocytes Absolute Auto 1000 /uL (1100-4500); Lymphocytes Percent Auto 18.2 % (25-40); Mean Corpuscular HGB Conc 33.3 % (30-36); Mean Corpuscular Hemoglobin 30.1 PG (26-34); Mean Corpuscular Volume 90.4 fL (80-100); Monocytes Absolute Auto 600 /uL (0-900); Monocytes Percent Auto 10.7 % (3-14); Neutrophils Absolute Auto 3700 /uL (1500-7000); Neutrophils Percent Auto 69.6 % (50-75); Platelet Count 212 X10^3/uL (150-400); Red Blood Cell Count 4.12 X10^6/uL (4.0-5.2); Red Cell Distribution Width 13.1 % (11.6-14.8); White Blood Cell Count 5.3 X10^3/uL (4.5-11.0)
[2024-10-14 14:23] LABS: Free T3, Triiodothyronine Free 5.44 pg/mL (2.77-5.27); Free T4, Direct Thyroxine 1.87 ng/dL (0.78-2.19)
[2024-10-14 14:33] LABS: Alanine Aminotransferase 16 IU/L (<35); Albumin 4.1 g/dL (3.5-5.0); Albumin Globulin Ratio 1.6 (1.0-2.8); Alkaline Phosphatase 60 U/L (38-126); Aspartate Aminotransferase 19 IU/L (14-36); BUN Creatinine Ratio 27.4 (6-22); Bilirubin Total 0.5 mg/dL (0.2-1.3); Blood Urea Nitrogen 17 mg/dL (7-17); Calcium 9.4 mg/dL (8.4-10.2); Carbon Dioxide 28 mmol/L (22-32); Chloride 102 mmol/L (98-107); Estimated Glomerular Filt Rate > 60 mL/min (>60); Globulin 2.6 g/dL (1.7-4.1); Glucose 114 mg/dL (70-99); HEMOLYSIS < 15 (0-50); Magnesium 1.7 mg/dL (1.6-2.3); Potassium 3.4 mmol/L (3.4-5.1); Sodium 140 mmol/L (137-145); Total Protein 6.7 g/dL (6.3-8.2)
[2024-10-14 14:39] LABS: Thyroid Stimulating Hormone < 0.015 uIU/mL (0.47-4.68)
== END ==
LOC: LAB 11:49
PROVIDERS: PCP Family Medicine; Referring Provider Family Medicine; Visit Provider Family Medicine
DX: R00.0 Tachycardia, unspecified (principal); C50.911 Malignant neoplasm of unspecified site of right female breast
CPT/HCPCS: 36415; 80053; 83735; 84439; 84443; 84481; 85025

== ENCOUNTER → 2025-02-03 11:38 | Outpatient (CLI) | payer MEDICARE, MEDICAID, SELFPAY ==
--- NOTE | 2025-02-03 11:41 | DI.US.S_ITS ---
PROCEDURE: US CAROTID DOPPLER BI INDICATIONS: LT CAROTID BRUIT TECHNIQUE: Color and pulse Doppler interrogation was performed of both carotid systems, with image documentation and velocity measurements. COMPARISON: None. FINDINGS: Stenosis calculations are based on SRU (Society of Radiologists in Ultrasound) criteria. Right side: Brachial blood pressure: 131/74 mm Hg. Common carotid artery peak systolic velocity: 98 cm/sec. Internal carotid artery peak systolic velocity: 227 cm/sec. Internal carotid artery end diastolic velocity: 34 cm/sec. External carotid artery peak systolic velocity: 196 cm/sec. ICA/CCA peak systolic ratio: 2.3 . Quezada scale imaging description: Extensive soft and calcific plaque in the carotid bulb Percent internal carotid artery stenosis: 70-99 . Vertebral artery: Flow direction is antegrade. Left side: Brachial blood pressure: 151/76 mm Hg. Common carotid artery peak systolic velocity: 56 cm/sec. Internal carotid artery peak systolic velocity: 151 cm/sec. Internal carotid artery end diastolic velocity: 31 cm/sec. External carotid artery peak systolic velocity: 132 cm/sec. ICA/CCA peak systolic ratio: 2.8 . Quezada scale imaging description: Extensive soft and calcific plaque in the carotid bulb. Percent internal carotid artery stenosis: 50-69 . Vertebral artery: Flow direction is antegrade. Additional findings: Severely elevated velocity within the left carotid bulb of 515 cm/second IMPRESSION: 1. In the right carotid artery, there is 70-99 percent stenosis based on peak systolic velocity criteria. 2. In the left carotid artery, there is 50-69 percent the stenosis based on peak systolic velocity criteria. 3. Antegrade vertebral arteries. 4. Asymmetric brachial blood pressures, correlate for symptoms of right subclavian steal. Dictated by: Estevan Gamez M.D. on 02/03/2025 at 15:47 Approved by: Estevan Gamez M.D. on 02/03/2025 at 15:53
== END ==
PROVIDERS: PCP Family Medicine; Referring Provider Family Medicine; Visit Provider Family Medicine
DX: I65.23 Occlusion and stenosis of bilateral carotid arteries (principal); R09.89 Other specified symptoms and signs involving the circulatory and respiratory systems
CPT/HCPCS: 93880